=== PATIENT | male | born 1950 | race Caucasian/White ===

== ENCOUNTER 2022-03-28 17:25 | Emergency (ER) | payer MEDICARE, SELFPAY ==
[2022-03-28 17:45] VITALS: BP 134/89; PULSE 115; RESP 18; TEMP 36.6; O2SAT 95; BMI 26.2
[2022-03-28 18:17] VITALS: BP 134/89; PULSE 115; RESP 18; TEMP 36.6; O2SAT 95
--- NOTE | 2022-03-28 18:17 | PC.NURSE ---
pt to return from restroom at this time, reports has successfull BM. Pt now feeling better. Pt wishes to LWBS by CARRIE NEGRON
== END 2022-03-28 18:17 | disposition left against medical advice (07) ==
PROVIDERS: Emergency Provider Emergency Medicine; PCP Internal Medicine Cardiovascular Disease
DX: Z53.1 Procedure and treatment not carried out because of patient's decision for reasons of belief and group pressure (principal); R19.8 Other specified symptoms and signs involving the digestive system and abdomen
CPT/HCPCS: 99211